=== PATIENT | male | born 1960 | race Caucasian/White ===

== ENCOUNTER 2019-01-13 01:28 | Emergency (ER) | payer OTHER ==
[2019-01-13 02:34] LABS: Protime INR 0.86
[2019-01-13 02:36] LABS: Absolute Lymphocytes (CBC) 2.8 K/uL (0.7-4.9); Basophils % 0.8 % (0-1.3); Hematocrit 43.3 % (39.6-49.0); Lymphocytes % 39.8 % (15.3-44.8); MPV 9.2 fL (7.6-11.3)
[2019-01-13 02:44] LABS: ALT/SGPT 17 U/L (12-78); AST/SGOT 20 U/L (15-37); Albumin 3.8 g/dL (3.4-5.0); Alkaline Phosphatase 53 U/L (45-117); BUN Blood Urea Nitrogen 22 mg/dL (7-18); Bicarbonate 27 mmol/L (21-32); Bilirubin Direct 0.1 mg/dL (0-0.2); Bilirubin Total 0.5 mg/dL (0.2-1.0); Glucose Level 103 mg/dL (74-106); Magnesium 2.2 mg/dL (1.8-2.4); NT PRO-BNP 63 pg/mL (<125); Potassium 3.8 mmol/L (3.5-5.1); Protein, Total 7.1 g/dL (6.4-8.2); Sodium Level 143 mmol/L (136-145); Troponin (Emerg Dept Use Only) < 0.02 ng/mL (0.0-0.045)
[2019-01-13] MEDS ORDERED: METOPROLOL TARTRATE 5 MG/5 ML INJ IV ONE (02:57)
--- NOTE | 2019-01-13 03:31 | ER ---
Nurse's Notes [facility] Name: Jeffrey Taylor Age: 58 yrs Sex: Male : 1960 Arrival Date: 01/13/2019 Time: 01:30 Bed 7 Private MD: Diagnosis: Paroxysmal atrial fibrillation Presentation: 01/13 01:46 Presenting complaint: Patient states: I was getting ready for bed approx 1.5 hours ago tl1 and I felt my heart beating irregular. Transition of care: patient was not received from another setting of care. Onset of symptoms was January 13, 2019. Risk Assessment: Do you want to hurt yourself or someone else? Patient reports no desire to harm self or others. Initial Sepsis Screen: Does the patient meet any 2 criteria? No. Patient's initial sepsis screen is negative. Does the patient have a suspected source of infection? No. Patient's initial sepsis screen is negative. Care prior to arrival: None. 01:46 Method Of Arrival: Ambulatory tl1 01:46 Acuity: CORINE 3 tl1 Historical: - Allergies: 01:48 No Known Allergies; tl1 - Home Meds: 01:48 metoprolol tartrate 25 mg Oral tab 1 tab once daily [Active]; Aspirin Oral [Active]; tl1 - PMHx: 01:48 Atrial Fib; tl1 - PSHx: 01:48 pacemaker; tl1 - Immunization history:: Adult Immunizations up to date. - Social history:: Smoking status: Patient/guardian denies using tobacco, never smoked. - Ebola Screening: : Patient negative for fever greater than or equal to 101.5 degrees Fahrenheit, and additional compatible Ebola Virus Disease symptoms Patient denies exposure to infectious person Patient denies travel to an Ebola-affected area in the 21 days before illness onset. Screenin:58 Abuse screen: Denies threats or abuse. Denies injuries from another. Nutritional tl1 screening: No deficits noted. Tuberculosis screening: No symptoms or risk factors identified. Fall Risk IV access (20 points). Assessment: 02:00 General: Appears in no apparent distress. comfortable, Behavior is calm, cooperative, tl1 appropriate for age. Pain: Denies pain. Pain does not radiate. Pain began no reports of pain. Neuro: Level of Consciousness is awake, alert, obeys commands, Oriented to person, place, time, situation. Cardiovascular: Reports palpitations, Denies chest pain, Heart tones present Capillary refill < 3 seconds Patient's skin is warm and dry. Rhythm is atrial fibrillation with rapid ventricular response. Respiratory: Airway is patent Trachea deviated to right Respiratory effort is even, unlabored, Respiratory pattern is regular, symmetrical, Breath sounds are clear bilaterally. GI: Abdomen is non-distended, Bowel sounds present X 4 quads. Abd is soft and non tender X 4 quads. : No signs and/or symptoms were reported regarding the genitourinary system. EENT: No signs and/or symptoms were reported regarding the EENT system. 03:34 Reassessment: No changes from previously documented assessment. Patient and/or family tl1 updated on plan of care and expected duration. Pain level reassessed. Patient is alert, oriented x 3, equal unlabored respirations, skin warm/dry/pink. Vital Signs: 01:48 BP 136 / 86; Pulse 91; Resp 16; Temp 97.7; Pulse Ox 96% on R/A; Pain 0/10; tl1 02:20 BP 118 / 71; Pulse 90; Resp 15; Pulse Ox 98% on R/A; Pain 0/10; tl1 03:02 BP 123 / 106; Pulse 101; Resp 20; Pulse Ox 97% on R/A; Pain 0/10; tl1 03:31 BP 119 / 94; Pulse 83; Resp 17; Temp 97.8; Pulse Ox 98% on R/A; Pain 0/10; tl1 ED Course: 01:30 Patient arrived in ED. cl3 01:34 Vamsi Perry MD is Attending Physician. tw4 01:46 Patient has correct armband on for positive identification. Placed in gown. Bed in low tl1 position. Call light in reach. Side rails up X 1. 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 Pulse ox on. NIBP on. 01:47 Triage completed. tl1 01:49 Arm band placed on right wrist. EKG completed in triage. Results shown to . tl1 01:56 Darcy Ford, DIONICIO is Primary Nurse. tl1 01:57 No provider procedures requiring assistance completed. Inserted saline lock: 20 gauge tl1 in right antecubital area, using aseptic technique. Blood collected. Patient maintains SpO2 saturation greater than 95% on room air. 02:22 XRAY Chest (1 view) In Process Unspecified. EDMS 03:36 IV discontinued, intact, bleeding controlled, No redness/swelling at site. Pressure tl1 dressing applied. Administered Medications: 03:02 Drug: Lopressor 5 mg Route: IVP; Infused Over: 5 mins; Site: right antecubital; tl1 03:37 Follow up: Response: No adverse reaction; No change in condition; Cardiac rhythm is tl1 unchanged Outcome: 03:30 Discharge ordered by . shahid 03:34 Discharged to home ambulatory, with family. tl1 03:34 Condition: stable 03:34 Discharge instructions given to patient, family, Instructed on discharge instructions, follow up and referral plans. medication usage, Demonstrated understanding of instructions, follow-up care, medications, ER physician called patients superior court justice at [facility] and was told to follow up in his office this morning. Pt verbalized understanding 03:37 Patient left the ED. tl1 Signatures: Dispatcher [employer] EDMS Darcy Ford RN RN tl1 Vamsi Perry MD MD tw4 Austin Tavarez cl3
--- NOTE | 2019-01-13 03:31 | EDPHYS ---
Physician Documentation [facility] Name: Jeffrey Taylor Age: 58 yrs Sex: Male : 1960 Arrival Date: 01/13/2019 Time: 01:30 Bed 7 Private MD: ED Physician Vamsi Perry HPI: 01/13 02:42 This 58 yrs old Male presents to ER via Ambulatory with complaints of tw4 Irregular Pulse. 02:42 The patient presents with a history of heart skipping beats. Context: The symptoms tw4 occur at rest. Onset: The symptoms/episode began/occurred just prior to arrival. Duration: The patient or guardian reports a single episode. Modifying factors: The symptoms are aggravated by nothing. The symptoms are alleviated by nothing. Associated signs and symptoms: The patient has no apparent associated signs or symptoms. Severity of symptoms: At their worst the symptoms were very mild in the emergency department the symptoms are unchanged. Historical: - Allergies: 01:48 No Known Allergies; tl1 - Home Meds: 01:48 metoprolol tartrate 25 mg Oral tab 1 tab once daily [Active]; Aspirin Oral [Active]; tl1 - PMHx: 01:48 Atrial Fib; tl1 - PSHx: 01:48 pacemaker; tl1 - Immunization history:: Adult Immunizations up to date. - Social history:: Smoking status: Patient/guardian denies using tobacco, never smoked. - Ebola Screening: : Patient negative for fever greater than or equal to 101.5 degrees Fahrenheit, and additional compatible Ebola Virus Disease symptoms Patient denies exposure to infectious person Patient denies travel to an Ebola-affected area in the 21 days before illness onset. ROS: 02:42 Constitutional: Negative for fever, chills, and weight loss, Eyes: Negative for injury, tw4 pain, redness, and discharge, Respiratory: Negative for shortness of breath, cough, wheezing, and pleuritic chest pain, Abdomen/GI: Negative for abdominal pain, nausea, vomiting, diarrhea, and constipation, Back: Negative for injury and pain, MS/Extremity: Negative for injury and deformity, Skin: Negative for injury, rash, and discoloration, Neuro: Negative for headache, weakness, numbness, tingling, and seizure. 02:42 Cardiovascular: Positive for palpitations, Negative for chest pain, edema, orthopnea. Exam: 02:42 Constitutional: This is a well developed, well nourished patient who is awake, alert, tw4 and in no acute distress. Head/Face: Normocephalic, atraumatic. Chest/axilla: Normal chest wall appearance and motion. Nontender with no deformity. No lesions are appreciated. Cardiovascular: Regular rate and rhythm with a normal S1 and S2. No gallops, murmurs, or rubs. Normal PMI, no JVD. No pulse deficits. Respiratory: Lungs have equal breath sounds bilaterally, clear to auscultation and percussion. No rales, rhonchi or wheezes noted. No increased work of breathing, no retractions or nasal flaring. Abdomen/GI: Soft, non-tender, with normal bowel sounds. No distension or tympany. No guarding or rebound. No evidence of tenderness throughout. MS/ Extremity: Pulses equal, no cyanosis. Neurovascular intact. Full, normal range of motion. Neuro: Awake and alert, GCS 15, oriented to person, place, time, and situation. Cranial nerves II-XII grossly intact. Motor strength 5/5 in all extremities. Sensory grossly intact. Cerebellar exam normal. Normal gait. Vital Signs: 01:48 BP 136 / 86; Pulse 91; Resp 16; Temp 97.7; Pulse Ox 96% on R/A; Pain 0/10; tl1 02:20 BP 118 / 71; Pulse 90; Resp 15; Pulse Ox 98% on R/A; Pain 0/10; tl1 03:02 BP 123 / 106; Pulse 101; Resp 20; Pulse Ox 97% on R/A; Pain 0/10; tl1 03:31 BP 119 / 94; Pulse 83; Resp 17; Temp 97.8; Pulse Ox 98% on R/A; Pain 0/10; tl1 MDM: 01:34 Patient medically screened. tw4 04:49 Differential diagnosis: arrythmia, dehydration, stress disorder. Data reviewed: vital tw4 signs, nurses notes. Data interpreted: Pulse oximetry: Interpretation: normal. Counseling: I had a detailed discussion with the patient and/or guardian regarding: the historical points, exam findings, and any diagnostic results supporting the discharge/admit diagnosis. Special discussion: I discussed with the patient/guardian in detail that at this point there is no indication for admission to the hospital. It is understood, however, that if the symptoms persist or worsen the patient needs to return immediately for re-evaluation. 01/13 01:55 Order name: Basic Metabolic Panel; Complete Time: 02:51 01/13 02:51 Interpretation: Normal except: CL 109; BUN 22; GFR 70. 01/13 01:55 Order name: CBC with Diff; Complete Time: 02:51 01/13 02:51 Interpretation: Within normal limits. 01/13 01:55 Order name: LFT's; Complete Time: 02:51 01/13 02:51 Interpretation: Within normal limits. 01/13 01:55 Order name: Magnesium; Complete Time: 02:51 01/13 02:51 Interpretation: Within normal limits: MG 2.2. 01/13 01:55 Order name: NT PRO-BNP; Complete Time: 02:51 01/13 02:51 Interpretation: Within normal limits: NT PRO-BNP 63. 01/13 01:55 Order name: PT-INR; Complete Time: 02:51 01/13 02:52 Interpretation: Within normal limits: PT 10.2. 01/13 01:55 Order name: Troponin (emerg Dept Use Only); Complete Time: 02:51 01/13 01:55 Order name: XRAY Chest (1 view) 01/13 01:55 Order name: EKG; Complete Time: 01:56 01/13 01:55 Order name: Cardiac monitoring; Complete Time: 01:57 01/13 01:55 Order name: EKG - Nurse/Tech; Complete Time: :57 01/13 01:55 Order name: IV Saline Lock; Complete Time: 01:57 01/13 01:55 Order name: Labs collected and sent; Complete Time: :57 01/13 01:55 Order name: O2 Per Protocol; Complete Time: :57 01/13 01:55 Order name: O2 Sat Monitoring; Complete Time: :57 EC:49 Rate is 108 beats/min. Rhythm is irregularly irregular. QRS [place] is Normal. MO interval tw4 is normal. QRS interval is normal. QT interval is normal. No Q waves. T waves are Normal. No ST changes noted. Clinical impression: Atrial Fibrillation. Interpreted by me. Reviewed by me. Administered Medications: 03:02 Drug: Lopressor 5 mg Route: IVP; Infused Over: 5 mins; Site: right antecubital; tl1 03:37 Follow up: Response: No adverse reaction; No change in condition; Cardiac rhythm is tl1 unchanged Disposition: 01/13/19 03:30 Discharged to Home. Impression: Paroxysmal atrial fibrillation. - Condition is Stable. - Discharge Instructions: Atrial Fibrillation, Atrial Fibrillation, [id number]. - Medication Reconciliation Form, Thank You Letter, Antibiotic Education, Prescription Opioid Use form. - Follow up: Private Physician; When: Upon discharge from the Emergency Department; Reason: Recheck today's complaints, Continuance of care. - Problem is an ongoing problem. - Symptoms have improved. Signatures: Dispatcher [employer] EDNoemi Moseley RN RN bb Darcy Ford RN RN tl1 Vamsi Perry MD MD tw4 Corrections: (The following items were deleted from the chart) 03:37 03:30 01/13/2019 03:30 Discharged to Home. Impression: Paroxysmal atrial fibrillation. tl1 Condition is Stable. Forms are Medication Reconciliation Form, Thank You Letter, Antibiotic Education, Prescription Opioid Use. Follow up: Private Physician; When: Upon discharge from the Emergency Department; Reason: Recheck today's complaints, Continuance of care. Problem is an ongoing problem. Symptoms have improved. tw4
[2019-01-13 03:50] VITALS: BP 119/94; TEMP 97.8; O2SAT 98
--- NOTE | 2019-01-13 08:41 | RAD REPORT ---
EXAM DESCRIPTION: RAD - Chest Single View - 01/13/2019 2:22 am CLINICAL HISTORY: Atrial fibrillation COMPARISON: June 2018 TECHNIQUE: AP portable chest image was obtained 0214 hours . FINDINGS: Lungs are clear. Lung markings are similar to comparison. Right-sided pacemaker is in plac e. Heart and vasculature are normal. No measurable pleural effusion and no pneumothorax. No acute bon y abnormality seen. No acute aortic findings suspected. IMPRESSION: No acute cardiopulmonary process. No significant interval change.
--- NOTE | 2019-01-13 08:46 | EKG ---
Test Date: 2019-01-13 Test Time: 01:42:24 [employer] Manager: JULIANA MEASUREMENT RESULTS: Intervals: Rate: 106 DE: QRSD: 80 QT: 352 QTc: 467 [place]: P: DE: QRS: 49 T: 23 INTERPRETIVE STATEMENTS: Atrial fibrillation with rapid ventricular response Abnormal ECG Compared to ECG 01/31/2017 07:14:17 Sinus bradycardia no longer present Ventricular premature complex(es) no longer present Electronically Signed On 01-13-19 08:45:12 MATERIAL DISPOSITION INSPECTOR by Jag Nicholson
== END 2019-01-13 03:37 | disposition home or self-care (01) ==
LOC: ER 01:28
DX: I48.0 Paroxysmal atrial fibrillation (principal); Z79.82 Long term (current) use of aspirin; Z95.0 Presence of cardiac pacemaker
CPT/HCPCS: 36415; 71045; 80048; 80076; 83735; 83880; 84484; 85025; 85610; 93005; 96374; 99285